=== PATIENT | male | born 1970 | race American Indian/Alaskan Native ===

== ENCOUNTER 2016-09-27 21:53 | Emergency (ER) | payer OTHER ==
[2016-09-28] MEDS ORDERED: MOTRIN PO ONE (01:41)
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
[2016-09-28 02:18] VITALS: BP 133/80
== END 2016-09-28 02:18 | disposition home or self-care (01) ==
LOC: ED 21:53
DX: S39.012A Strain of muscle, fascia and tendon of lower back, initial encounter (principal); S13.4XXA Sprain of ligaments of cervical spine, initial encounter; F17.200 Nicotine dependence, unspecified, uncomplicated; V49.59XA Passenger injured in collision with other motor vehicles in traffic accident, initial encounter; Y93.9 Activity, unspecified; Y92.9 Unspecified place or not applicable; Y99.9 Unspecified external cause status
CPT/HCPCS: 99282